=== PATIENT | male | born 2000 | race Two or more races ===

== ENCOUNTER 2025-03-26 08:58 | Emergency (ER) | payer MEDICAID ==
[~2025-03-26] VITALS: Ht 170.2 cm; Wt 77.0 kg
[2025-03-26 09:05] VITALS: O2SAT 100
[2025-03-26 09:22] VITALS: BP 115/74; PULSE 85; RESP 16; TEMP 36.7; O2SAT 100
== END 2025-03-26 13:29 | disposition left against medical advice (07) ==
LOC: ER 08:58
DX: Z20.2 Contact with and (suspected) exposure to infections with a predominantly sexual mode of transmission (principal)
CPT/HCPCS: 99282